=== PATIENT | female | born 1930 | race Caucasian/White ===

== ENCOUNTER 2016-08-25 13:10 | Outpatient (CLI) | payer MEDICARE, MEDICAID | END 2016-08-25 23:59 | disposition home health service (06) | LOC: WOU 13:10 | PROVIDERS: ATTEND Podiatrist Foot & Ankle Surgery | DX: L98.9 Disorder of the skin and subcutaneous tissue, unspecified (principal); L85.9 Epidermal thickening, unspecified; Z88.6 Allergy status to analgesic agent; Z88.2 Allergy status to sulfonamides; I87.311 Chronic venous hypertension (idiopathic) with ulcer of right lower extremity; L97.819 Non-pressure chronic ulcer of other part of right lower leg with unspecified severity; L84 Corns and callosities; M35.1 Other overlap syndromes; M20.41 Other hammer toe(s) (acquired), right foot; Z86.73 Personal history of transient ischemic attack (TIA), and cerebral infarction without residual deficits; E78.5 Hyperlipidemia, unspecified; Z95.1 Presence of aortocoronary bypass graft; Z85.828 Personal history of other malignant neoplasm of skin; Z79.899 Other long term (current) drug therapy | CPT/HCPCS: A6402; G0463 ==

== ENCOUNTER 2016-09-08 13:22 | Outpatient (CLI) | payer MEDICARE, MEDICAID | END 2016-09-08 23:59 | disposition home or self-care (01) | LOC: WOU 13:22 | PROVIDERS: ATTEND Podiatrist Foot & Ankle Surgery | DX: I87.311 Chronic venous hypertension (idiopathic) with ulcer of right lower extremity (principal); L97.811 Non-pressure chronic ulcer of other part of right lower leg limited to breakdown of skin; R60.0 Localized edema; R22.42 Localized swelling, mass and lump, left lower limb; I25.10 Atherosclerotic heart disease of native coronary artery without angina pectoris; I10 Essential (primary) hypertension; Z95.1 Presence of aortocoronary bypass graft; Z87.891 Personal history of nicotine dependence; Z95.820 Peripheral vascular angioplasty status with implants and grafts; Z85.828 Personal history of other malignant neoplasm of skin; E78.5 Hyperlipidemia, unspecified; Z86.73 Personal history of transient ischemic attack (TIA), and cerebral infarction without residual deficits | CPT/HCPCS: 11042; A6402 ==

== ENCOUNTER 2016-09-29 13:11 | Outpatient (CLI) | payer MEDICARE, MEDICAID | END 2016-09-29 23:59 | disposition home or self-care (01) | LOC: WOU 13:11 | PROVIDERS: ATTEND Podiatrist Foot & Ankle Surgery | DX: I87.311 Chronic venous hypertension (idiopathic) with ulcer of right lower extremity (principal); I96 Gangrene, not elsewhere classified; L97.811 Non-pressure chronic ulcer of other part of right lower leg limited to breakdown of skin; R60.0 Localized edema; Z86.73 Personal history of transient ischemic attack (TIA), and cerebral infarction without residual deficits; Z85.828 Personal history of other malignant neoplasm of skin; E78.5 Hyperlipidemia, unspecified; I10 Essential (primary) hypertension; Z95.1 Presence of aortocoronary bypass graft; Z79.899 Other long term (current) drug therapy | CPT/HCPCS: 11042; A6402 ==

== ENCOUNTER 2016-10-07 12:45 | Outpatient (CLI) | payer MEDICARE, MEDICAID | END 2016-10-07 23:59 | disposition home health service (06) | DX: I87.311 Chronic venous hypertension (idiopathic) with ulcer of right lower extremity (principal); L97.911 Non-pressure chronic ulcer of unspecified part of right lower leg limited to breakdown of skin; R60.0 Localized edema; Z85.828 Personal history of other malignant neoplasm of skin; E78.5 Hyperlipidemia, unspecified; I10 Essential (primary) hypertension; Z86.73 Personal history of transient ischemic attack (TIA), and cerebral infarction without residual deficits; I25.10 Atherosclerotic heart disease of native coronary artery without angina pectoris; Z95.1 Presence of aortocoronary bypass graft; Z79.02 Long term (current) use of antithrombotics/antiplatelets; Z88.6 Allergy status to analgesic agent; Z88.2 Allergy status to sulfonamides; R22.42 Localized swelling, mass and lump, left lower limb | CPT/HCPCS: 15271; A6402; Q4133 ==

== ENCOUNTER 2016-10-13 13:15 | Outpatient (CLI) | payer MEDICARE, MEDICAID | END 2016-10-13 23:59 | disposition home health service (06) | LOC: WOU 13:15 | PROVIDERS: ATTEND Podiatrist Foot & Ankle Surgery | DX: I87.311 Chronic venous hypertension (idiopathic) with ulcer of right lower extremity (principal); L97.211 Non-pressure chronic ulcer of right calf limited to breakdown of skin; R60.0 Localized edema; Z85.828 Personal history of other malignant neoplasm of skin; E78.5 Hyperlipidemia, unspecified; I10 Essential (primary) hypertension; Z95.1 Presence of aortocoronary bypass graft; M20.41 Other hammer toe(s) (acquired), right foot; Z87.891 Personal history of nicotine dependence | CPT/HCPCS: 15271; A6402 ×2; Q4131 ==

== ENCOUNTER 2016-10-20 13:20 | Outpatient (CLI) | payer MEDICARE, MEDICAID | END 2016-10-20 23:59 | disposition home health service (06) | LOC: WOU 13:20 | PROVIDERS: ATTEND Podiatrist Foot & Ankle Surgery | DX: I87.311 Chronic venous hypertension (idiopathic) with ulcer of right lower extremity (principal); L97.212 Non-pressure chronic ulcer of right calf with fat layer exposed; M20.41 Other hammer toe(s) (acquired), right foot; R60.0 Localized edema; Z86.73 Personal history of transient ischemic attack (TIA), and cerebral infarction without residual deficits; Z85.828 Personal history of other malignant neoplasm of skin; Z95.1 Presence of aortocoronary bypass graft; Z95.820 Peripheral vascular angioplasty status with implants and grafts; I25.10 Atherosclerotic heart disease of native coronary artery without angina pectoris; I15.9 Secondary hypertension, unspecified; E78.5 Hyperlipidemia, unspecified | CPT/HCPCS: 11042; A6402 ==

== ENCOUNTER 2016-10-27 13:30 | Outpatient (CLI) | payer MEDICARE, MEDICAID | END 2016-10-27 23:59 | disposition home health service (06) | LOC: WOU 13:30 | PROVIDERS: ATTEND Podiatrist Foot & Ankle Surgery | DX: I87.2 Venous insufficiency (chronic) (peripheral) (principal); L97.811 Non-pressure chronic ulcer of other part of right lower leg limited to breakdown of skin; I25.10 Atherosclerotic heart disease of native coronary artery without angina pectoris; E78.00 Pure hypercholesterolemia, unspecified; Z79.02 Long term (current) use of antithrombotics/antiplatelets; Z95.1 Presence of aortocoronary bypass graft; Z88.6 Allergy status to analgesic agent; Z88.2 Allergy status to sulfonamides; L84 Corns and callosities | CPT/HCPCS: 11042; A6402 ==

== ENCOUNTER 2016-11-03 13:24 | Outpatient (CLI) | payer MEDICARE, MEDICAID | END 2016-11-03 23:59 | disposition home health service (06) | LOC: WOU 13:24 | PROVIDERS: ATTEND Podiatrist Foot & Ankle Surgery | DX: I87.311 Chronic venous hypertension (idiopathic) with ulcer of right lower extremity (principal); L97.211 Non-pressure chronic ulcer of right calf limited to breakdown of skin; L30.9 Dermatitis, unspecified; M20.41 Other hammer toe(s) (acquired), right foot; Z88.6 Allergy status to analgesic agent; Z88.2 Allergy status to sulfonamides | CPT/HCPCS: 15271; A6402 ==

== ENCOUNTER 2016-11-10 13:05 | Outpatient (CLI) | payer MEDICARE, MEDICAID | END 2016-11-10 23:59 | disposition home health service (06) | LOC: WOU 13:05 | PROVIDERS: ATTEND Podiatrist Foot & Ankle Surgery | DX: I87.331 Chronic venous hypertension (idiopathic) with ulcer and inflammation of right lower extremity (principal); L97.811 Non-pressure chronic ulcer of other part of right lower leg limited to breakdown of skin; L30.9 Dermatitis, unspecified; M20.41 Other hammer toe(s) (acquired), right foot; Z95.1 Presence of aortocoronary bypass graft | CPT/HCPCS: 11042; A6402 ==

== ENCOUNTER 2016-11-17 13:31 | Outpatient (CLI) | payer MEDICARE, MEDICAID | END 2016-11-17 23:59 | disposition home health service (06) | LOC: WOU 13:31 | PROVIDERS: ATTEND Podiatrist Foot & Ankle Surgery | DX: I87.331 Chronic venous hypertension (idiopathic) with ulcer and inflammation of right lower extremity (principal); L97.211 Non-pressure chronic ulcer of right calf limited to breakdown of skin; L97.311 Non-pressure chronic ulcer of right ankle limited to breakdown of skin; Z88.6 Allergy status to analgesic agent; Z88.2 Allergy status to sulfonamides; Z95.1 Presence of aortocoronary bypass graft | CPT/HCPCS: 11042; A6402 ==

== ENCOUNTER 2016-11-24 13:45 | Outpatient (CLI) | payer MEDICARE, MEDICAID | END 2016-11-24 23:59 | disposition home health service (06) | LOC: WOU 13:45 | PROVIDERS: ATTEND Podiatrist Foot & Ankle Surgery | DX: I87.311 Chronic venous hypertension (idiopathic) with ulcer of right lower extremity (principal); L97.811 Non-pressure chronic ulcer of other part of right lower leg limited to breakdown of skin; Z88.6 Allergy status to analgesic agent; Z88.2 Allergy status to sulfonamides; S80.812A Abrasion, left lower leg, initial encounter; W50.4XXA Accidental scratch by another person, initial encounter; Y92.89 Other specified places as the place of occurrence of the external cause; M20.41 Other hammer toe(s) (acquired), right foot; Z95.1 Presence of aortocoronary bypass graft | CPT/HCPCS: 11042; A6402 ==

== ENCOUNTER 2016-12-01 13:27 | Outpatient (CLI) | payer MEDICARE, MEDICAID | END 2016-12-01 23:59 | disposition home health service (06) | LOC: WOU 13:27 | PROVIDERS: ATTEND Podiatrist | DX: I87.311 Chronic venous hypertension (idiopathic) with ulcer of right lower extremity (principal); L97.212 Non-pressure chronic ulcer of right calf with fat layer exposed; R60.0 Localized edema; M20.41 Other hammer toe(s) (acquired), right foot; L84 Corns and callosities; S80.811A Abrasion, right lower leg, initial encounter; X58.XXXA Exposure to other specified factors, initial encounter; Y92.89 Other specified places as the place of occurrence of the external cause; Z88.2 Allergy status to sulfonamides | CPT/HCPCS: A6402; G0463 ==

== ENCOUNTER 2016-12-08 13:46 | Outpatient (CLI) | payer MEDICARE, MEDICAID | END 2016-12-08 23:59 | disposition home or self-care (01) | LOC: WOU 13:46 | PROVIDERS: ATTEND Podiatrist Foot & Ankle Surgery | DX: I87.311 Chronic venous hypertension (idiopathic) with ulcer of right lower extremity (principal); M20.41 Other hammer toe(s) (acquired), right foot; Z88.2 Allergy status to sulfonamides; S80.811D Abrasion, right lower leg, subsequent encounter; X58.XXXD Exposure to other specified factors, subsequent encounter; I25.10 Atherosclerotic heart disease of native coronary artery without angina pectoris; I10 Essential (primary) hypertension; Z95.1 Presence of aortocoronary bypass graft; Z87.891 Personal history of nicotine dependence; Z79.02 Long term (current) use of antithrombotics/antiplatelets; E78.5 Hyperlipidemia, unspecified; Z85.828 Personal history of other malignant neoplasm of skin; Z86.73 Personal history of transient ischemic attack (TIA), and cerebral infarction without residual deficits | CPT/HCPCS: 11042; A6402 ==

== ENCOUNTER 2016-12-15 12:50 | Outpatient (CLI) | payer MEDICARE, MEDICAID | END 2016-12-15 23:59 | disposition home health service (06) | LOC: WOU 12:50 | PROVIDERS: ATTEND Podiatrist Foot & Ankle Surgery | DX: I87.311 Chronic venous hypertension (idiopathic) with ulcer of right lower extremity (principal); L97.811 Non-pressure chronic ulcer of other part of right lower leg limited to breakdown of skin; R60.0 Localized edema; Z85.828 Personal history of other malignant neoplasm of skin; I10 Essential (primary) hypertension; E78.5 Hyperlipidemia, unspecified; Z86.73 Personal history of transient ischemic attack (TIA), and cerebral infarction without residual deficits; I25.10 Atherosclerotic heart disease of native coronary artery without angina pectoris; Z95.1 Presence of aortocoronary bypass graft; Z79.02 Long term (current) use of antithrombotics/antiplatelets; Z87.891 Personal history of nicotine dependence | CPT/HCPCS: 11042; A6402 ==

== ENCOUNTER 2016-12-25 13:25 | Outpatient (CLI) | payer MEDICARE, MEDICAID | END 2016-12-25 23:59 | disposition home health service (06) | LOC: WOU 13:25 | PROVIDERS: ATTEND Podiatrist Foot & Ankle Surgery | DX: I87.2 Venous insufficiency (chronic) (peripheral) (principal); L97.811 Non-pressure chronic ulcer of other part of right lower leg limited to breakdown of skin; Z88.2 Allergy status to sulfonamides; I25.10 Atherosclerotic heart disease of native coronary artery without angina pectoris; Z95.1 Presence of aortocoronary bypass graft; Z98.890 Other specified postprocedural states | CPT/HCPCS: 17250; A6402 ==

== ENCOUNTER 2017-01-06 12:45 | Outpatient (CLI) | payer MEDICARE, MEDICAID | END 2017-01-06 23:59 | disposition home health service (06) | LOC: WOU 12:45 | PROVIDERS: ATTEND Podiatrist Foot & Ankle Surgery | DX: I87.311 Chronic venous hypertension (idiopathic) with ulcer of right lower extremity (principal); L97.819 Non-pressure chronic ulcer of other part of right lower leg with unspecified severity; Z85.828 Personal history of other malignant neoplasm of skin; Z95.1 Presence of aortocoronary bypass graft; Z87.891 Personal history of nicotine dependence; R60.0 Localized edema; Z09 Encounter for follow-up examination after completed treatment for conditions other than malignant neoplasm | CPT/HCPCS: A6402; G0463 ==

== ENCOUNTER 2017-01-27 12:33 | Outpatient (CLI) | payer MEDICARE, MEDICAID | END 2017-01-27 23:59 | disposition home health service (06) | LOC: WOU 12:33 | PROVIDERS: ATTEND Podiatrist Foot & Ankle Surgery | DX: I87.311 Chronic venous hypertension (idiopathic) with ulcer of right lower extremity (principal); L97.811 Non-pressure chronic ulcer of other part of right lower leg limited to breakdown of skin; R60.0 Localized edema; I10 Essential (primary) hypertension; E78.5 Hyperlipidemia, unspecified; Z87.891 Personal history of nicotine dependence; I25.10 Atherosclerotic heart disease of native coronary artery without angina pectoris; Z95.1 Presence of aortocoronary bypass graft; Z88.2 Allergy status to sulfonamides; Z85.828 Personal history of other malignant neoplasm of skin; Z86.73 Personal history of transient ischemic attack (TIA), and cerebral infarction without residual deficits | CPT/HCPCS: 11042; A6402 ==

== ENCOUNTER 2017-02-10 13:10 | Outpatient (CLI) | payer MEDICARE, MEDICAID | END 2017-02-10 23:59 | disposition home health service (06) | LOC: WOU 13:10 | PROVIDERS: ATTEND Podiatrist Foot & Ankle Surgery | DX: L97.811 Non-pressure chronic ulcer of other part of right lower leg limited to breakdown of skin (principal); I87.9 Disorder of vein, unspecified; R60.0 Localized edema; I25.10 Atherosclerotic heart disease of native coronary artery without angina pectoris; I10 Essential (primary) hypertension; Z95.1 Presence of aortocoronary bypass graft; Z86.73 Personal history of transient ischemic attack (TIA), and cerebral infarction without residual deficits; E78.5 Hyperlipidemia, unspecified | CPT/HCPCS: 11042; A6402 ==

== ENCOUNTER 2017-03-03 13:00 | Outpatient (CLI) | payer MEDICARE, MEDICAID | END 2017-03-03 23:59 | disposition home health service (06) | LOC: WOU 13:00 | PROVIDERS: ATTEND Podiatrist Foot & Ankle Surgery | DX: I87.311 Chronic venous hypertension (idiopathic) with ulcer of right lower extremity (principal); L97.811 Non-pressure chronic ulcer of other part of right lower leg limited to breakdown of skin; L03.115 Cellulitis of right lower limb; R60.0 Localized edema; Z87.891 Personal history of nicotine dependence; Z88.6 Allergy status to analgesic agent; Z88.2 Allergy status to sulfonamides; I25.10 Atherosclerotic heart disease of native coronary artery without angina pectoris; I10 Essential (primary) hypertension; Z95.1 Presence of aortocoronary bypass graft; Z86.73 Personal history of transient ischemic attack (TIA), and cerebral infarction without residual deficits; E78.5 Hyperlipidemia, unspecified; Z79.899 Other long term (current) drug therapy | CPT/HCPCS: 11042; A6402 ==

== ENCOUNTER 2017-03-24 12:45 | Outpatient (CLI) | payer MEDICARE, MEDICAID | END 2017-03-24 23:59 | disposition home or self-care (01) | LOC: WOU 12:45 | PROVIDERS: ATTEND Podiatrist Foot & Ankle Surgery | DX: I87.8 Other specified disorders of veins (principal); R60.0 Localized edema; L85.3 Xerosis cutis; Z88.6 Allergy status to analgesic agent; Z88.2 Allergy status to sulfonamides; I25.10 Atherosclerotic heart disease of native coronary artery without angina pectoris; Z95.1 Presence of aortocoronary bypass graft | CPT/HCPCS: A6402; G0463 ==

== ENCOUNTER 2017-04-16 12:24 | Outpatient (CLI) | payer MEDICARE, MEDICAID | END 2017-04-16 23:59 | disposition home health service (06) | LOC: WOU 12:24 | PROVIDERS: ATTEND Podiatrist Foot & Ankle Surgery | DX: L03.115 Cellulitis of right lower limb (principal); R60.0 Localized edema; L90.9 Atrophic disorder of skin, unspecified; I87.2 Venous insufficiency (chronic) (peripheral); I25.10 Atherosclerotic heart disease of native coronary artery without angina pectoris; Z95.1 Presence of aortocoronary bypass graft; Z88.6 Allergy status to analgesic agent; Z88.2 Allergy status to sulfonamides | CPT/HCPCS: G0463 ==

== ENCOUNTER 2017-04-27 13:02 | Outpatient (CLI) | payer MEDICARE, MEDICAID | END 2017-04-27 23:59 | disposition home health service (06) | LOC: WOU 13:02 | PROVIDERS: ATTEND Podiatrist Foot & Ankle Surgery | DX: R60.0 Localized edema (principal); I87.2 Venous insufficiency (chronic) (peripheral); L84 Corns and callosities; M20.5X2 Other deformities of toe(s) (acquired), left foot; M20.5X1 Other deformities of toe(s) (acquired), right foot; Z88.6 Allergy status to analgesic agent; Z88.2 Allergy status to sulfonamides; Z95.1 Presence of aortocoronary bypass graft | CPT/HCPCS: G0463 ==

== ENCOUNTER 2017-05-07 12:55 | Outpatient (CLI) | payer MEDICARE, MEDICAID | END 2017-05-07 23:59 | disposition home health service (06) | LOC: WOU 12:55 | PROVIDERS: ATTEND Podiatrist Foot & Ankle Surgery | DX: R60.0 Localized edema (principal); I87.2 Venous insufficiency (chronic) (peripheral); Z88.6 Allergy status to analgesic agent; Z88.2 Allergy status to sulfonamides; Z95.1 Presence of aortocoronary bypass graft; B35.1 Tinea unguium; B35.3 Tinea pedis | CPT/HCPCS: G0463 ==

== ENCOUNTER 2017-06-18 12:55 | Outpatient (CLI) | payer MEDICARE, MEDICAID | END 2017-06-18 23:59 | disposition home or self-care (01) | LOC: WOU 12:55 | PROVIDERS: ATTEND Podiatrist Foot & Ankle Surgery | DX: I87.2 Venous insufficiency (chronic) (peripheral) (principal); R60.0 Localized edema; L84 Corns and callosities; L81.4 Other melanin hyperpigmentation; B35.3 Tinea pedis; L90.9 Atrophic disorder of skin, unspecified; Z95.1 Presence of aortocoronary bypass graft | CPT/HCPCS: G0463 ==